=== PATIENT | male | born 1935 | race Caucasian/White ===

== ENCOUNTER 2019-07-14 22:10 | Inpatient (IN) | payer MEDICARE ==
[~2019-07-14] VITALS: Ht 185.4 cm; Wt 81.7 kg
--- NOTE | 2019-07-14 22:15 | NUR ---
FAMILY PLACED IN FAMILY WAITING ROOM.
[2019-07-14 22:40] VITALS: BP 115/67
[2019-07-14 22:49] LABS: HEMATOCRIT 27.7 % (42.0-52.0); HEMOGLOBIN 8.7 g/dl (14.0-18.0); MEAN CELL VOLUME 108.2 fl (80.0-94.0); MEAN CORPUSCULAR HGB CONC 31.4 g/dl (33.0-37.0); MEAN PLATELET VOLUME 9.5 fl (9.6-12.3); PLATELET COUNT AUTOMATED 214 10*3/uL (130-400); RED BLOOD COUNT 2.56 10*6/uL (4.50-5.90); RED CELL DISTRI WIDTH 14.1 % (0-14.5); WHITE BLOOD COUNT 9.8 10*3/uL (4.8-10.8)
[2019-07-14 23:00] LABS: ACT PARTIAL THROMBO TIME 38.2 SECONDS (20.0-32.1); INTERNATIONAL NORM RATIO 1.6 (2.0-3.5)
[2019-07-14 23:06] LABS: ALBUMIN 2.9 gm/dl (3.1-4.5); CREATININE 2.78 mg/dL (0.70-1.30); POTASSIUM 5.2 mmol/L (3.5-5.1); TOTAL PROTEIN 7.1 gm/dL (6.4-8.2)
[2019-07-14 23:07] LABS: TROPONIN I 0.024 ng/ml (<0.045)
[2019-07-14 23:10] VITALS: BP 124/75
[2019-07-14 23:10] LABS: BASOPHILS 1 % (0-1); BURR CELLS MODERATE; OVALOCYTES MODERATE; TOTAL CELLS COUNTED 100 #CELLS
[2019-07-14 23:11] LABS: PLATELET SUFFICIENCY NORMAL (NORMAL)
[2019-07-14 23:40] VITALS: BP 121/67
[2019-07-15] VITALS (9 sets, daily range): BP systolic 107–149; BP diastolic 56–84
--- NOTE | 2019-07-15 02:10 | NUR ---
A 84, admitted to , under the services of LE Bentley DO with a diagnosis of HX ACUTE CHF, KIDNEY INJURY, SYNCOPE. Chief complaint is EMS CALLED TO RESIDENCE FOR C/O UNRESPONSIVE MALE, DAUGHTER FOUND PATIENT AT TOP OF STAIRS UNRESPONSIVE. PT BECAME RESPONSIVE WITH EMS,PT . Patient arrived via stretcher from ER. Monitor applied. Initial assessment completed. Vital signs taken and recorded. LE BENTLEY DO notified of admission to the . Orders received. See assessment for past medical history, medications and allergies. Patient and/or family oriented to unit. [facility] visitation policy reviewed. Clothing/patient valuable form completed.2 IV'S ONE IN EACH ANTECUBITAL. LEFT ANTECUBITAL INFUSING 0.9NS. DR. PERRY DC'S IV FLUIDS ON FLOOR. SCROTUM SWOLLEN AND RED AND ALSO DARK IN FOLDS OF GROIN, BILATERAL LOWER LEGS 2-3+ PITTING EDEMA WITH SKIN FLAKEY/DARK REDISH AND PURPLE. 2 SCABS NOTED ON RIGHT ANKLE MEASURED AND PHOTO TAKEN, 1 SCAB ON OUTER LEFT LOWER LEG MEASURED AND PHOTO TAKEN, SEVERAL VERY SMALL SCABS NOTED ON LEFT SIDE HEAD. RIGHT FOREARM ECCHYMOTIC AREA. LEFT EYE RED AND WATERY. O2 2L NC IN USE. MOHAMUD SALAS
--- NOTE | 2019-07-15 04:04 | NUR ---
CALLED DR. PERRY AND NOTIFIED HER OF SCABS TO RIGHT ANKLE AND LEFT LOWER LEG. HOME MEDICATIONS CAN NOT BE RECONCILLED BECAUSE PATIENT UNABLE TO REMEMBER ALL MEDICATIONS, THAT ORTHOSTATIC BP NEGATIVE.
[2019-07-15 04:16] LABS: HEMATOCRIT 27.5 % (42.0-52.0); HEMOGLOBIN 8.6 g/dl (14.0-18.0); MEAN CELL VOLUME 109.1 fl (80.0-94.0); MEAN CORPUSCULAR HGB 34.1 pg (27.0-31.0); MEAN CORPUSCULAR HGB CONC 31.3 g/dl (33.0-37.0); MEAN PLATELET VOLUME 9.5 fl (9.6-12.3); PLATELET COUNT AUTOMATED 215 10*3/uL (130-400); RED BLOOD COUNT 2.52 10*6/uL (4.50-5.90); RED CELL DISTRI WIDTH 14.1 % (0-14.5); WHITE BLOOD COUNT 8.8 10*3/uL (4.8-10.8)
[2019-07-15 04:28] LABS: CREATININE 2.71 mg/dL (0.70-1.30); POTASSIUM 5.1 mmol/L (3.5-5.1)
[2019-07-15 04:32] LABS: FREE T4 1.24 ng/dl (0.76-1.46); PHOSPHOROUS 3.7 mg/dL (2.5-4.9)
--- NOTE | 2019-07-15 04:36 | NUR ---
NOTIFIED DR. PERRY OF ELEVATED TROPONIN AND NO ORDERS RECEIVED AT THIS TIME.
[2019-07-15 04:39] LABS: THYROID STIM HORMONE (HS) 4.03 uIU/ml (0.358-4.75)
[2019-07-15 04:41] LABS: TOTAL CELLS COUNTED 100 #CELLS
[2019-07-15 04:42] LABS: BURR CELLS MANY; OVALOCYTES MODERATE; PLATELET SUFFICIENCY NORMAL (NORMAL)
--- NOTE | 2019-07-15 06:40 | NUR ---
THERE IS A CALL OUT TO DR. BAUTISTA
--- NOTE | 2019-07-15 07:29 | NUR ---
NOTIFIED DR BAUTISTA OF NEW CONSULT FOR ELEVATED TROPONIN'S,[id number] EPISODE.NO NEW ORDERS.PT STABLE AT THIS TIME.
[2019-07-15] MEDS ORDERED: XARE15TA PO (07:59)
[2019-07-15] MEDS ORDERED: METOPROLOL SUCC25 M2 PO (08:00)
[2019-07-15] MEDS ORDERED: FAMOTIDINE20 M1 PO (08:00)
[2019-07-15] MEDS ORDERED: FUROSEMIDE20 M1 PO (08:00)
[2019-07-15] MEDS ORDERED: GOOD NEIGHBOR L10 MG PO (08:01)
[2019-07-15] MEDS ORDERED: TAB-A-VITE1 EACH PO (08:01)
[2019-07-15] MEDS ORDERED: POTASSIUM CHLO10 ME4 PO (08:01)
--- NOTE | 2019-07-15 08:02 | NUR ---
MEDS RECONCILED VIA MED CLAIM HISTORY.
[2019-07-15 08:37] LABS: VITAMIN D, 25-HYDROXY 37.7 ng/mL (30-100)
--- NOTE | 2019-07-15 20:27 | NUR ---
1900 BACK TORSTEN BED WITH 2 ASSISTS. HOB ELEVATED. CALL LIGHT IN REACH. HEP LOCK INTACT. BED ALARM APPLIED. NO DISTRESS NOTEE. EDEMA CONT OF BILATERAL LOWER EXTRIMITIES, SCROTUM INTO BILATERAL FLANKS.
--- NOTE | 2019-07-15 22:19 | NUR ---
RESTING IN BED WATCHING TV.
[2019-07-16] VITALS: BP 113/77
--- NOTE | 2019-07-16 00:31 | NUR ---
RESTIN GIN BED WITH EYES CLOSED. APPEARS TO BE SLEEPING.
--- NOTE | 2019-07-16 06:12 | NUR ---
0600 IV LASIX GIVEN ORDERED. PT STATES THAT HIS SCROTUM FEELS "LESS SWOLLEN". NO C/O'S VOICED. CONDITION GUARDED.
[2019-07-16 06:39] LABS: BASO % 0.4 % (0.0-1.0); EOS # 0.3 10*3/uL (0.0-0.4); EOS % 3.5 % (1.0-4.0); HEMATOCRIT 25.2 % (42.0-52.0); HEMOGLOBIN 7.8 g/dl (14.0-18.0); LYMPH % 12.7 % (27.0-41.0); MEAN CELL VOLUME 107.2 fl (80.0-94.0); MEAN CORPUSCULAR HGB 33.2 pg (27.0-31.0); MEAN PLATELET VOLUME 9.6 fl (9.6-12.3); MONO # 0.8 10*3/uL (0.1-1.0); NEUT # 5.6 10*3/uL (2.3-7.9); NEUT % 73.1 % (47.0-73.0); PLATELET COUNT AUTOMATED 193 10*3/uL (130-400); RED BLOOD COUNT 2.35 10*6/uL (4.50-5.90); RED CELL DISTRI WIDTH 14.1 % (0-14.5); WHITE BLOOD COUNT 7.7 10*3/uL (4.8-10.8)
[2019-07-16 06:52] LABS: ALBUMIN 2.7 gm/dl (3.1-4.5); CREATININE 2.67 mg/dL (0.70-1.30); POTASSIUM 4.5 mmol/L (3.5-5.1); TOTAL PROTEIN 6.4 gm/dL (6.4-8.2)
--- NOTE | 2019-07-16 07:15 | NUR ---
Patient resting quietly with no c/o discomfort. Respirations easy and regular. Vital signs stable. No overt distress. TALHA DE SANTIAGO
--- NOTE | 2019-07-16 08:42 | NUR ---
24 HR chart check completed.
--- NOTE | 2019-07-16 09:00 | NUR ---
Ed Educational Aide in to talk to patient. Patient states lives at home with daughter. There are many steps in the home. Physician: belinda love [facility]acy: [facility] Home health services: none Patient's level of ADLs: MINIMAL ASSIST Patient has working utilities: all working DME: no ne Follow-up physician's appointment after d/c: will be made by hospitalist nurse director upon discharge Does patient want to access PORTAL?: no Discharge plan discussed with patient, daughter present, he lives at home with daughter, normally he has been getting around fine, but has been weaker latel he has a lot of steps in his home, daughter states she works and patient is alone all day, they would patient to be referred to whatever facility takes patient's insurance and has an opening, associate financial planner will work on this, case management will follow. BLANKA JORGE
--- NOTE | 2019-07-16 10:25 | NUR ---
Occupational therapy orders received and OT evaluation completed in full on floor four. Patient precautions include fall risk, bed alarm, weakness, fluctuating SP02, and ww use. Per OT eval, OT recommends SNF. If refused, home with HH SN, OT, and PT. Patient complexity is moderate, [id number]. Thank you for the referral. Amaris Sher, OTR/L
--- NOTE | 2019-07-16 10:51 | NUR ---
FRANCISCO ALVARADO [id number] Please refer to the physician's history and physical for past medical history, comorbid conditions, and allergies. Diagnosis: AC KIDNEY INJURY, HX OF AC CONGESTIVE HEART FAILUR Fish Score: 20,LOW OR NO RISK WOUND DESCRIPTIONS: Wound Number: 1 Location of the wound: RIGHT ANKLE PROXIMAL Thickness: Full Size: 0.4cm X 0.4cm X <0.1cm Tunneling: NONE Undermining: NONE Sinus Tract: NONE Presence of Exudate: NONE Amount: None Color: Brown Odor: None Periwound Skin Appearance: Normal Wound edges: CLOSED INTACT SCAB Pain (associated with wound): DENIED AT TIME OF ASSESSMENT How does patient state this happened? PATIENT STATES THIS AREA COMES AND GOES. If wound is on legs/feet or hands, capillary refill time, pulses, color temp, sensation: CAP REFILL < 3 SECONDS. PEDIAL PULSE PRESENT Wound Number: 2 Location of the wound: RIGHT ANKLE DISTAL Thickness: Full Size: 0.5cm X 0.5cm X <0.1cm Tunneling: NONE Undermining: NONE Sinus Tract: NONE Presence of Exudate: NONE Amount: None Color: Brown Odor: None Periwound Skin Appearance: Normal Wound edges: CLOSED INTACT SCAB Pain (associated with wound): DENIED AT TIME OF ASSESSMENT How does patient state this happened? PATIENT STATES THIS AREA COMES AND GOES. If wound is on legs/feet or hands, capillary refill time, pulses, color temp, sensation: CAP REFILL < 3 SECONDS. PEDIAL PULSE PRESENT WOUND NUMBER 3 LEFT LOWER LEG INTACT SCAB. DRYNESS NOTED DISTALY OF SCAB AT TIME OF ASSESSMENT. PATIENT STATES HE USES LOTION TO THE DRY SKIN IN THIS AREA. PATIENT WAS AGREEABLE TO AQUAPHOR TO THE DRY SKIN. WOUND NUMBER 4 GROIN AND FOLDS PINK AND INTACT. NO DRAINAGE TO ODER AT TIME OF ASSESSMENT. Surface the patient is resting on: Isoflex SKIN PREVENTION RECOMMENDATION: 1. Pressure redistribution support surface as appropriate 2. Elevate heels 3. Remove boots/TEDS every shift and reapply 4. Head of bed 30 degrees as tolerated 5. Assess nutrition and hydration 6. Manage moisture 7. Avoid the use of containment devices while in bed 8. Use absorptive products on surfaces limit layers of linens on bed 9. Turn and reposition every 1-2 hours in bed and every 1 hour in chair as tolerated 10. Weight shifts every 15 minutes while up in chair 11. Offloading with pillows or device to keep heels elevated off bed 12. Monitor skin at least every shift 13. Inspect under medical devices twice a day WOUND TREATMENT RECOMMENDATIONS: DRESSING CHANGE TO RIGHT PROXIMAL AND DISTAL ANKLE AND LEFT LATERAL LEG INTACT SCAB: CLEANSE WITH NSS APPLY SUREPREP ALLOW TO DRY AND COVER WITH OPTIFOAM GENTLE. CHANGE EVERY TWO DAYS AND PRN SOILING. AQUAPHOR DAILY TO DRY SKIN. HEEL RAISER PRO BOOTS WHILE IN BED. HYDRAGUARD TO BUTTOCKS EVERY SHIFT AND PRN SOILING FOR PROTECTION.
--- NOTE | 2019-07-16 11:08 | NUR ---
NIHARIKA GAYLE NOTIFIED OF SPO2 AT REST OF 97% ON EAR WITHOUT O2. SPO2 READS IN THE 80s ON HIS COLD FINGERS.
--- NOTE | 2019-07-16 11:29 | NUR ---
PHYSICAL THERAPY Vladimir completed full note to follow, pt is moderate level of [id number]. PT to work on transfers, amb with approp AD, strengthening and stairs. Pt could benefit from further therapy prior to home however he states he wants to go home, spoke with CM to discuss with daughter. Thank you. Shirley Christine PT
--- NOTE | 2019-07-16 11:49 | NUR ---
Earnestine Crabtree IT RECRUITER notified of wound care recommendations.
[2019-07-16 12:00] VITALS: BP 110/73
--- NOTE | 2019-07-16 12:26 | NUR ---
patient requested a referral to [facility] or [facility]. Contacted both facilities. [facility] is out of network with [employer] insurance; contacted [facility] who is in network, and faxed referral. They are reviewing at this time. requires precert.
--- NOTE | 2019-07-16 13:13 | NUR ---
OT NOTE Pt was seen this P.M. 1:1 for 17 minute OT session. Upon arrival pt was supine in bed. Pt identified by name and and had no complaints at this time. Pt presented to therapy on room air which he remained on throughout entire session. At rest pt's SpO2 was 99% (on ear due to cold fingers) and heart rate 71 bpm. Pt transferred supine to sit EOB with Rickey for assist with UB. While sitting EOB pt donned B socks with CGA for safety. Sit to stand completed from bed level with Rickey and use of w/w for UE support. Challenged pt's static standing tolerance needed for increased I in self care tasks and functional transfers, pt was able to tolerate aprox 4 minutes at a time before sitting due to fatigue. Throughout pt's SpO2 was 96% (on ear) and heart rate 80 bpm. After a seated rest break pt completed functional mobility into the bathroom with CGA and use of w/w for UE support. Pt transferred on to standard commode with Rickey for assist with safety and low surface and off with modA due to low surface. Clothing management completed with Rickey. Functional mobility was then completed back to the EOB for a seated rest break, SpO2 dropped to 89% (on ear) heart rate 113 bpm. Within aprox 15 seconds of rest and pursed lip breathing pt's SpO2 raised to 100% (on ear) and heart rate 81 bpm. Pt was left sitting upright in the recliner with call light in hand, tray table in place, and body alarm activated for safety. COntinue with rec D/C plan to SNF. PAVEL Hines
--- NOTE | 2019-07-16 13:15 | NUR ---
PHYSICAL THERAPY Patient seen this pm 1;1 for therapy visit and was supine in bed upon therapist arrival. Patient identified by name / and reported no new c/o's. Patient recorded SpO2 99% on RA with HR 71 bpm. Patient transfers supine to sit EOB with MIN A and sit to stand CGA, while ambulating with use of wh walker, 15'x 1 to bathroom then addtional 30'x 1, CGA, demonstrating slow marissa and increased fatigue. Patient instructed on purse lip breathing technique recording SpO2 89%, HR 113 bpm during gait ex. Patient returned to bedside chair and remained with call light, tray table, telephone and body alarm. SpO2 folloiwng treatment 100% on RA with HR 82 bpm. Will continue per POC as tolerated, total treatment time 15 minutes. Link Brewer, PATTERN FILER
--- NOTE | 2019-07-16 14:17 | NUR ---
Patient has been accepted to [facility] and rehab and they are starting precert today. Waiting for auth.
[2019-07-16 16:00] VITALS: BP 126/74
[2019-07-16 20:00] VITALS: BP 120/71
[2019-07-17] VITALS: BP 113/76
--- NOTE | 2019-07-17 02:22 | NUR ---
PT RELAXING IN BED WATCHING TV. NO COMPLAINTS AT THIS TIME. CALL LIGHT WITHIN REACH,
[2019-07-17 06:46] LABS: BASO % 0.6 % (0.0-1.0); EOS # 0.3 10*3/uL (0.0-0.4); EOS % 3.8 % (1.0-4.0); HEMATOCRIT 26.3 % (42.0-52.0); HEMOGLOBIN 8.3 g/dl (14.0-18.0); LYMPH # 1.2 10*3/uL (1.3-4.4); LYMPH % 16.6 % (27.0-41.0); MEAN CELL VOLUME 107.3 fl (80.0-94.0); MEAN CORPUSCULAR HGB 33.9 pg (27.0-31.0); MEAN CORPUSCULAR HGB CONC 31.6 g/dl (33.0-37.0); MEAN PLATELET VOLUME 9.6 fl (9.6-12.3); MONO # 0.6 10*3/uL (0.1-1.0); MONO % 8.7 % (3.0-9.0); NEUT # 4.9 10*3/uL (2.3-7.9); PLATELET COUNT AUTOMATED 205 10*3/uL (130-400); RED BLOOD COUNT 2.45 10*6/uL (4.50-5.90); RED CELL DISTRI WIDTH 14.1 % (0-14.5); RETICULOCYTE % 2.86 % (0.50-2.50); WHITE BLOOD COUNT 6.9 10*3/uL (4.8-10.8)
[2019-07-17 07:12] LABS: ALBUMIN 2.8 gm/dl (3.1-4.5); CREATININE 2.78 mg/dL (0.70-1.30); PHOSPHOROUS 4.1 mg/dL (2.5-4.9); POTASSIUM 4.7 mmol/L (3.5-5.1)
[2019-07-17 08:00] VITALS: BP 115/62; BP 122/68
--- NOTE | 2019-07-17 08:03 | NUR ---
OT NOTE Pt was seen this A.M. 1:1 for 23 minute OT session. Upon arrival pt was supine in bed. Pt identified by name and and had no complaints at this time. Pt presented to therapy on room air which he remained on throughout the entire session. Pt's resting SpO2 was 100% and heart rate 80 bpm. Pt transferred supine to sit EOB with Rickey for assist with UB. Sit to stand completed from bed level with Rickey and use of w/w for UE support. Functional mobility was then completed into the bathroom with CGA and use of w/w. There he transferred on to standard commode [facility] Rickey and off with modA due to low surface. Clothing management completed with CGA for safety and toilet hygiene completed with supervision while seated. Pt then stood sink side while washing his hands with CGA for safety. After a seated rest break challenged pt's static standing tolerance needed for increased I in self care tasks and functional transfers. Pt was able to tolerate aprox 4 minutes at a time before sitting due to fatigue. Then challenged pt's dynamic standing balance needed for enhanced safety. While weight shifting, crossing midline, and reaching over all planes pt was able to maintain F+ standing balance throughout. Pt was left sitting uproght in the recliner with call light in hand, tray table in place, and body alarm activated for safety. Throughout entire session pt's SpO2 remained within functional limits. Continue with rec D/C plan to SNF. VITO Hines/Brian
--- NOTE | 2019-07-17 08:45 | NUR ---
PHYSICAL THERAPY Patient seen this am 1:1 for therapy visit and was supine in bed upon therapist arrival. Patient identified by name / and reports no new c/o's at this time. Patient transfers supine to sit EOB with MIN A x 1, needing a minute or so to collect himself, then performed sit to stand transfer MIN A. Patient baseline SpO2 100% on RA, HR 80 bpm. Patient ambulates with use of wh walker, 45'x 2, CGA, demonstrating slow marissa, increased fatigue and very cautious gait pattern during all turns. Patient returned to bedside chair as SpO2 and HR both remained WFL's throughout entire therapy session. Patient remained in chair with call light, tray table, telephone and body alarm for safety. Will continue per POC as tolerated, total treatment time 17 minutes. Link Brewer, SECONDARY SCHOOL SPECIAL ED TEACHER
--- NOTE | 2019-07-17 11:25 | NUR ---
wound dressig applied wounds cleansed per wound orders
[2019-07-17 12:00] VITALS: BP 121/79
--- NOTE | 2019-07-17 13:46 | NUR ---
Clinical updates faxed to [facility] to continue precert. still waiting for auth.
--- NOTE | 2019-07-17 13:59 | NUR ---
Patient has received auth for [facility]; auth good for today and tomorrow if medically stable for discharge.
--- NOTE | 2019-07-17 15:46 | NUR ---
OCCUPATIONAL THERAPY CO-SIGN I approve of the Occupational Therapy notes written above. JENNIFER BARAHONA OTR/Brian
[2019-07-17 16:00] VITALS: BP 111/77
--- NOTE | 2019-07-17 16:00 | NUR ---
Patient resting quietly with no c/o discomfort. Respirations easy and regular. Vital signs stable. No overt distress. TALHA DE SANTIAGO
--- NOTE | 2019-07-17 19:43 | NUR ---
PATIENT RESTING IN BED WITH NO NEEDS MADE. BED IN LOWEST POSITION, CALL LIGHT IN REACH, BED ALARM ON
[2019-07-17 20:00] VITALS: BP 112/73
[2019-07-18] VITALS: BP 120/71
--- NOTE | 2019-07-18 03:37 | NUR ---
24 HR chart check completed.
[2019-07-18 07:05] LABS: ALBUMIN 2.9 gm/dl (3.1-4.5); CREATININE 2.85 mg/dL (0.70-1.30); PHOSPHOROUS 4.3 mg/dL (2.5-4.9); POTASSIUM 4.7 mmol/L (3.5-5.1)
[2019-07-18 08:00] VITALS: BP 112/67
--- NOTE | 2019-07-18 08:28 | NUR ---
PHYSICIAN WAS NOTIFIED OF DR. LES MEJIA. RESPONSE OF NOTIFICATION WAS OK THANK YOU. RAFAEL RANGEL
--- NOTE | 2019-07-18 08:35 | NUR ---
PHYSICAL THERAPY Patient seen this am 1:1 for therapy visit and was sitting up in bedside chair following OT him assistant treatment upon therapist arrival. Patient identified by name / and reports no new c/o's at this time. Patient stated he was a little exhausted after walking to bathroom with other therapist and agreed to / performed seated B LE therex, all planes, 2 x 10 reps each to increase LE strength. Patient also completed multiple sit to stand transfers from low chair surface, MIN A, demonstrating slow rise and increased SOB. Patient SpO2 / HR remained WFL's throughout entire treatment session as patient remained in bedside chair with call light, telephone and body alarm for safety. Will continue per POC as tolerated, total treatment time 17 minutes. Link Brewer, HUMIDIFIER MAINTENANCE WORKER
--- NOTE | 2019-07-18 10:02 | NUR ---
OT NOTE PATIENT SEEN 1:1 OT THIS DATE 15 MINUTES. PATIENT IDENTIFIED BY NAME AND DATE OF . PATIENT IN RECLINER UPON ARRIVAL. COMPLETED SIT TO STAND FROM RECLINER MIN A WITH MIN VERBAL CUES TECHNIQUE AND PROPER HAND PLACEMENT. PATIENT COMPLETED FUNCTIONAL AMBULATION USE FWW TO BATHROOM CGA WITH FAIR FWW SAFETY. COMPLETED TOILET TRANSFER MOD A AND COMPLETING TOILETING TASK CGA. PATIENT WASHED HANDS STANDING AT SINK CGA AND COMPLETED FUNCTIONAL AMABULATION USE FWW TO RECINER CGA WITH MIN VERBAL CUES SAFETY. PATIENT COMPLETED LB DRESSIGN MIN A CHERYL PANTS WITH CGA SIT TO STAND FROM RECLINER FOR STAND COMPONENT ADL TASK. PATIENT IN CARE OF DIRECTOR OF PROMOTIONS END OF VIDEO NETWORK ENGINEER SESSION THIS DATE. CONTINUE TOWARDS PLAN OF CARE. GAURI PADRON/Brian
[2019-07-18 12:00] VITALS: BP 117/85
--- NOTE | 2019-07-18 15:05 | NUR ---
Nutritional Support Services Note: Pt is eating 100% of meals. Severe protein calorie malnutrition noted. Pt states he does not want a supplement because he drinks enough liquid already. Will provide pt with a night snack. Stressed importance of adequate protein and calories. Wound and scabbed areas noted. Will follow as needed. Misa Cleaning Rdn Ld
--- NOTE | 2019-07-18 15:23 | NUR ---
OFFICE STAFF WAS NOTIFIED OF DR. DOMINIQUE MEJIA. RESPONSE OF NOTIFICATION WAS RUMA IS COVERING AND I WILL PAGE HIM RIGHT NOW.. RAFAEL RANGEL
[2019-07-18 16:00] VITALS: BP 108/74
--- NOTE | 2019-07-18 19:00 | NUR ---
PT RESTING COMFORTABLY IN HIS CHAIR AT THIS TIME. NO S/S OF DISTRESS NOTED. RESPS ARE EASY AND NONLABORED. CALL LIGHT WITHIN REACH, WILL CONTINUE TO MONITOR.
--- NOTE | 2019-07-18 19:51 | NUR ---
24 hr chart check complete
[2019-07-18 20:00] VITALS: BP 110/65
[2019-07-19] VITALS: BP 114/69
[2019-07-19 06:42] LABS: ALBUMIN 2.8 gm/dl (3.1-4.5); PHOSPHOROUS 3.8 mg/dL (2.5-4.9); POTASSIUM 4.8 mmol/L (3.5-5.1)
[2019-07-19 08:00] VITALS: BP 110/70
--- NOTE | 2019-07-19 09:00 | NUR ---
case management visits with patient, social and human services assistant is working on discharge plan, [facility]
--- NOTE | 2019-07-19 09:00 | NUR ---
PER DR SALDANA THORACENTESIS TOMORROW.
--- NOTE | 2019-07-19 11:08 | NUR ---
OT NOTE Attempted to see pt this A.M. for OT session and upon arrival pt was under doctor care for a procedure. Will check back at a later time/date and continue with POC as able. VITO Hines/Brian
[2019-07-19 11:47] VITALS: BP 136/73
[2019-07-19 11:49] LABS: HEMATOCRIT 27.2 % (42.0-52.0); HEMOGLOBIN 8.7 g/dl (14.0-18.0); MEAN CELL VOLUME 103.8 fl (80.0-94.0); MEAN CORPUSCULAR HGB 33.2 pg (27.0-31.0); MEAN PLATELET VOLUME 9.4 fl (9.6-12.3); PLATELET COUNT AUTOMATED 200 10*3/uL (130-400); RED BLOOD COUNT 2.62 10*6/uL (4.50-5.90); RED CELL DISTRI WIDTH 14.1 % (0-14.5); WHITE BLOOD COUNT 5.7 10*3/uL (4.8-10.8)
--- NOTE | 2019-07-19 11:51 | NUR ---
BONE BIOPSY SITE CHECKED AND NO FURTHER BLEEDING NOTED. WILL CONT TO MONITOR. VSS.
[2019-07-19 12:00] VITALS: BP 113/72
[2019-07-19 12:25] LABS: TOTAL CELLS COUNTED 100 #CELLS
[2019-07-19 12:26] LABS: OVALOCYTES FEW
[2019-07-19 12:27] LABS: ACANTHOCYTES FEW
[2019-07-19 12:28] LABS: BURR CELLS FEW; PLATELET SUFFICIENCY NORMAL (NORMAL)
--- NOTE | 2019-07-19 12:51 | NUR ---
Contacted [facility] and faxed updates for precert. Asked for updated precert to cover a D/C for Tuesday07/20/19. Waiting on confirmation of auth
--- NOTE | 2019-07-19 14:40 | NUR ---
OT NOTE Pt was seen this P.M. 1:1 for 16 minute OT session. Upon arrival pt was supine in bed. Pt identified by name and and had complaints of increased fatigue. Pt transferred supine to sit EOB with Rickey for assist with UB. While sitting EOB pt donned B slippers with Rickey. Pt completed multiple sit to stand transfers from bed level with Rickey and use of w/w for UE support. Challenged pt's static standing tolerance needed for increased I in self care tasks and functional transfers, pt was able to tolerate aprox 30-45 seocnds at a time before sitting due to fatigue. Pt then transferred back into bed sit to supine with SBA. There he was left with call ligh tin hand, tray table in place, and bed alarm activated for safety. Continue with rec D/C plan to SNF. VITO Hines/Brian
--- NOTE | 2019-07-19 14:42 | NUR ---
PHYSICAL THERAPY Patient presented to therapy in supine with head of bed elevated and report of being fatugued from everything he has went through today. Patient had a bone marrow biopsy earlier today by Dr. Higuera. Patient was identified by name and on wristband. Patient gives informed consent for treatment. Patient performed supine to sitting transfer at EOB with with SBA. Patient sit to stand transfer with MIN A X 1 from EOB. Patient stood x 3 and 1st attempt) 45 sec. 2nd attempt) 35 sec. 3rd attempt) 15 sec. Patient transferred back to supine in bed with SBA. Patient performed was left in supine in bed with head of bed elevated, call light within reach and bed alarm activated. Patient was very fatigued and was trying to fall asleep in standing. Patient was 1:1 with this CHIEF CLERK SHELTER for 16 minutes total. AUBREY BUNN CHIEF CLERK SHELTER
[2019-07-19 16:00] VITALS: BP 132/69
[2019-07-19 20:00] VITALS: BP 126/94
--- NOTE | 2019-07-19 20:12 | NUR ---
PATIENT IS SLEEPING WITH EASY AND REGULAR RESPERS ON ROOM AIR. AROUSES EASILY FOR ASSESSMENT. ASSESSMENT IS COMPLETE WITH NO C/O OR S/S OF DISTRESS NOTED AT THIS TIME. BED IS LOW, LOCKED, ALARMED, AND CALL LIGHT IS WITHIN REACH. WILL CONTINUE TO MONITOR, SEE SHIFT ASSESSMENT.
[2019-07-20] VITALS: BP 116/66
[2019-07-20 06:51] LABS: BASO % 0.7 % (0.0-1.0); EOS # 0.1 10*3/uL (0.0-0.4); EOS % 1.1 % (1.0-4.0); HEMATOCRIT 27.6 % (42.0-52.0); HEMOGLOBIN 8.5 g/dl (14.0-18.0); LYMPH # 0.8 10*3/uL (1.3-4.4); LYMPH % 18.2 % (27.0-41.0); MEAN CELL VOLUME 106.2 fl (80.0-94.0); MEAN CORPUSCULAR HGB 32.7 pg (27.0-31.0); MEAN CORPUSCULAR HGB CONC 30.8 g/dl (33.0-37.0); MEAN PLATELET VOLUME 8.9 fl (9.6-12.3); MONO # 0.5 10*3/uL (0.1-1.0); MONO % 10.3 % (3.0-9.0); NEUT # 3.2 10*3/uL (2.3-7.9); NEUT % 69.5 % (47.0-73.0); PLATELET COUNT AUTOMATED 182 10*3/uL (130-400); RED CELL DISTRI WIDTH 14.2 % (0-14.5); WHITE BLOOD COUNT 4.6 10*3/uL (4.8-10.8)
[2019-07-20 07:05] LABS: CREATININE 2.93 mg/dL (0.70-1.30); POTASSIUM 4.9 mmol/L (3.5-5.1)
--- NOTE | 2019-07-20 07:45 | NUR ---
DR SALDANA AT BEDSIDE FOR THORECENTESIS TO RIGHT LUNG PER POLICY. EDUCATION PROVIDED PRIOR TO PROCEDURE AND CONSENT SIGNED.VITALS OBTAINED,BP 100/68,RESPS EASYSPO2 95% ON 2LNC. PT STABLE.PT TOLERATED PROCEDURE WELL. DRAINED 1800 CC FLUID FROM RIGHT LUNG AND SPECIMENS SENT.PT EXPRESSES "FEELING BETTER".WILL CONTINUE TO MONITOR.
[2019-07-20 08:00] VITALS: BP 100/68
--- NOTE | 2019-07-20 08:50 | NUR ---
PHYSICAL THERAPY Patient seen this am 1;1 for therapy visit and was resting supine in bed following breakfast upon therapist arrival. Patient identified by name / and reports no c/o's pain at this time. Patient transfers supine to sit EOB with MIN A x 1. then sit to stand CGA, with use of walker stadning support. Patient ambulates wh walker, CGA, 15'x 1 to bathroom then additional 50'x 1, demonstrating "slouched" upright posture, decreased stride and increased fatigue. Patient returned to bedside chair and remained with call light, telephone and body alarm. Will continue per POC as tolerated, total treatment time 17 minutes. Link Brewer, RETAIL ASSOCIATE MANAGER BILINGUAL
--- NOTE | 2019-07-20 09:46 | NUR ---
Patient has received auth for [facility] and is ok to go if medically stable for discharge.
[2019-07-20 10:18] LABS: BODY FLUID WBC 161 /uL
--- NOTE | 2019-07-20 11:04 | NUR ---
OT NOTE PATIENT COMPLETED 15 MINUTES OT THIS DATE. PATIENT INDENTIFIED BY NAME AND DATE OF . PATIENT COMPLETED SUPINE TO SIT EOB CGA AND SIT TO STAND FROM BED CGA. COMPLETED FUNCTIONAL AMBULATION USE FWW TO BATHROOM CGA ON 2L 02 THROUGHOUT SESSION THIS DATE. PATIENT COMPLETE TOILETING TASK CGA WITH PLACEMENT OF BEDSIDE COMMODE OVER TOILET DEMONSTRATING INCREASE SAFETY AND INDEPENDENCE WITH TOILET TRANSFER. PATIENT COMPLETED FUNCTIONAL AMBULATION USE FWW TO RECLINER. PATIENT SEATED IN RECLINER WITH CALL LIGHT WITHIN REACH AND CHAIR ALARM IN TACT. CONTINUE TOWARDS PLAN OF CARE. GAURI PADRON/Brian
[2019-07-20 11:17] LABS: BF LYMPHOCYTES 71 %; BF MACROPHAGES 14 %; BF MESOTHELIALS 1 %; BF NEUTROPHILS 11 %
[2019-07-20 12:00] VITALS: BP 105/64
[2019-07-20] MEDS ORDERED: ELIQUIS5 M1 PO (14:00)
[2019-07-20] MEDS ORDERED: HYDROCODONE-AC1 EAC1 PO (14:00)
--- NOTE | 2019-07-20 14:31 | NUR ---
Patient is discharged to [facility]. transportation scheduled for 4 PM with [place]. NH, nursing and daughter all notified.
--- NOTE | 2019-07-20 15:20 | NUR ---
OCCUPATIONAL THERAPY CO-SIGN I approve of the Occupational Therapy notes written above. JENNIFER BARAHONA OTR/Brian
--- NOTE | 2019-07-20 15:20 | NUR ---
PHYSICAL THERAPY CO-SIGN I approve of the Physical Therapy notes written above. Shirley Christine PT
[2019-07-20 16:00] VITALS: BP 102/66
--- NOTE | 2019-07-20 16:25 | NUR ---
PT REFUSED D/C WOUNDCARE PHOTOS "FOR SCABS".
--- NOTE | 2019-07-20 16:30 | NUR ---
Discharge instructions reviewed with patient/family. Patient receptive and verbalizes understanding. Follow-up care arranged. Written instructions given to patient/family. KRISSY MOISE
--- NOTE | 2019-07-20 16:56 | NUR ---
REPORT CALLED TO YUNG WALL @ [facility].
--- NOTE | 2019-07-23 07:50 | NUR ---
PHYSICAL THERAPY CO-SIGN I approve of the Physical Therapy notes written above. Shirley Christine PT
[2019-08-07 10:08] LABS: GTG BAND RESOLUTION ACHIEVED 400 (.)
== END 2019-07-20 16:30 | disposition other institution (70) | DRG 682 ==
LOC: ED 22:10 → 4E 07-15 01:29 → EDHOLD 07-15 01:29 → 4E 07-15 01:41
PROVIDERS: Emergency Medicine Emergency Medical Services; Family Medicine; Internal Medicine; Internal Medicine Critical Care Medicine; Registered Nurse; Student in an Organized Health Care Education/Training Program; ADMIT Internal Medicine
PROC: 07DR3ZX Extraction of Iliac Bone Marrow, Percutaneous Approach, Diagnostic (ICD-10-PCS; principal; 2019-07-20)
PROC: 0W993ZZ Drainage of Right Pleural Cavity, Percutaneous Approach (ICD-10-PCS; principal; 2019-07-20)
DX: N17.0 Acute kidney failure with tubular necrosis (principal); I50.43 Acute on chronic combined systolic (congestive) and diastolic (congestive) heart failure; E43 Unspecified severe protein-calorie malnutrition; J96.01 Acute respiratory failure with hypoxia; I13.0 Hypertensive heart and chronic kidney disease with heart failure and stage 1 through stage 4 chronic kidney disease, or unspecified chronic kidney disease; I24.8 Other forms of acute ischemic heart disease; D68.69 Other thrombophilia; J91.8 Pleural effusion in other conditions classified elsewhere; D68.9 Coagulation defect, unspecified; N18.4 Chronic kidney disease, stage 4 (severe); E87.5 Hyperkalemia; D53.9 Nutritional anemia, unspecified; E87.8 Other disorders of electrolyte and fluid balance, not elsewhere classified; Z96.643 Presence of artificial hip joint, bilateral; D46.9 Myelodysplastic syndrome, unspecified; I08.3 Combined rheumatic disorders of mitral, aortic and tricuspid valves; R73.9 Hyperglycemia, unspecified; E83.41 Hypermagnesemia; K21.9 Gastro-esophageal reflux disease without esophagitis; I48.21 Permanent atrial fibrillation; I67.9 Cerebrovascular disease, unspecified; Z88.2 Allergy status to sulfonamides; Z88.1 Allergy status to other antibiotic agents; Z88.4 Allergy status to anesthetic agent; Z85.038 Personal history of other malignant neoplasm of large intestine; Z87.891 Personal history of nicotine dependence; Z82.49 Family history of ischemic heart disease and other diseases of the circulatory system; Z91.040 Latex allergy status; Z79.899 Other long term (current) drug therapy; Z79.01 Long term (current) use of anticoagulants; Z86.73 Personal history of transient ischemic attack (TIA), and cerebral infarction without residual deficits; Z68.25 Body mass index [BMI] 25.0-25.9, adult